=== PATIENT | male | born 1980 | race African-American/Black ===

== ENCOUNTER 2021-04-10 22:49 | Emergency (ER) | payer SELFPAY ==
[~2021-04-10] VITALS: Ht 182.9 cm; Wt 94.3 kg
[~2021-04-10 22:49] MED LIST: HYDR12.58 PO
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
--- NOTE | 2021-04-11 00:50 | RAD ---
EXAM: XR CHEST 2V 04/10/2021 11:11 PM CLINICAL INDICATION: Left upper back pain COMPARISON: None TECHNIQUE: PA and lateral views of the chest FINDINGS: The heart and mediastinum are normal. Lungs are well-expanded and clear. No consolidatio n, pleural effusion, or pneumothorax. Pulmonary vascularity is normal. The thoracic skeleton is int act. IMPRESSION: Normal chest radiograph. Electronically signed by: Pooja Dove MD (04/11/2021 12:48 AM) [id number]
[2021-04-11 01:10] VITALS: BP 139/94
== END 2021-04-11 01:24 | disposition home or self-care (01) ==
LOC: ER 22:49
DX: M54.6 Pain in thoracic spine (principal); G89.11 Acute pain due to trauma; Z88.2 Allergy status to sulfonamides; V49.49XA Driver injured in collision with other motor vehicles in traffic accident, initial encounter; Y93.89 Activity, other specified; Y92.488 Other paved roadways as the place of occurrence of the external cause; Y99.8 Other external cause status
CPT/HCPCS: 70450; 71046; 72125; 99284-25